=== PATIENT | female | born 1995 | race Caucasian/White ===

== ENCOUNTER 2023-08-21 11:14 | Inpatient (IN) | payer BC, OTHER ==
[~2023-08-21 11:14] MED LIST: Bupivacaine 0.25% HCL 30 ML VIAL ONE
[2023-08-21 13:18] VITALS: BMI 28.8
[2023-08-21] MEDS ORDERED: Oxytocin 30 units/NS 500 ML 500 ML ONE (13:19)
[2023-08-21] MEDS ORDERED: Promethazine HCl 25 MG/ML VIAL IM PRN ×2 (13:41→19:31)
[2023-08-21] MEDS ORDERED: HYDROcodone/Acetaminophen 5/325 mg Tablet PO PRN ×2 (13:41)
[2023-08-21] MEDS ORDERED: Ibuprofen 800 MG TAB PO PRN (13:41)
[2023-08-21] MEDS ORDERED: Lidocaine 1% (PF) 30 ML VIAL SC PRN (13:41)
[2023-08-21] MEDS ORDERED: hydrALAZINE 20 MG/ML VIAL SLOW IVP PRN ×2 (13:41→23:18)
[2023-08-21] MEDS ORDERED: Ondansetron PF 4 MG/2 ML Vial IVP PRN ×2 (13:41→19:31)
[2023-08-21] MEDS ORDERED: fentaNYL 50 mcg/mL 1 mL Vial SLOW IVP PRN (13:41)
[2023-08-21] MEDS ORDERED: Oxytocin 30 units/NS 500 ML 500 ML IV SCH ×3 (13:45)
[2023-08-21 13:55] LABS: Hematocrit 42.4 % (34.9-44.5); Hemoglobin 14.2 g/dL (12.0-15.5); Mean Corpuscular HGB CONC 33.5 g/dL (32.0-36.0); Mean Corpuscular Hemoglobin 29.6 pg (27.0-33.0); Mean Corpuscular Volume 88.3 fl (81.6-98.3); Mean Platelet Volume 11.5 fl (7.4-10.4); Platelet Count 258 10x3/uL (150-450); RBC Distribution Width 14.1 % (11.5-14.5); White Blood Cell (WBC) Count 10.6 10x3/uL (3.5-10.5)
[2023-08-21 14:35] LABS: HBSAg Index 0.16 S/CO (0-0.99); Hep B Surf Ag - L&D Non-Reactive S/CO (NonReactive)
[2023-08-21] MEDS ORDERED: Sodium Bicarbonate 2.5 MEQ/5 ML VIAL ONE (15:09)
[2023-08-21] MEDS ORDERED: fentaNYL/Ropivacaine Epidural 100 ML ONE (15:12)
[2023-08-21] MEDS ORDERED: diphenhydrAMINE 50 MG/ML VIAL IVP PRN (19:31)
[2023-08-21] MEDS ORDERED: Acetaminophen 325 MG TAB PO PRN ×2 (19:31→23:39)
[2023-08-21] MEDS ORDERED: Naloxone HCl 0.4 mg/ml Vial IVP PRN ×2 (19:31)
[2023-08-21] MEDS ORDERED: Lactated Ringer's 500 ML IV PRN (19:31)
[2023-08-21] MEDS ORDERED: Moisturizing Cream (Eucerin) 113 GM JAR TOP PRN (19:31)
[2023-08-21] MEDS ORDERED: ePHEDrine Sulfate 50 MG/10 ML VIAL SLOW IVP PRN (19:31)
[2023-08-21] MEDS ORDERED: fentaNYL 2 mcg/Ropivacaine 0.2% Epidural 100 ML CADD EPIDURAL SCH (19:45)
[2023-08-21] MEDS ORDERED: Communication Order-Pharmacy FS SCH (19:45)
[2023-08-21] MEDS: Lactated Ringer's 1,000 ML IV SCH (20:48)
[2023-08-21] MEDS ORDERED: Bisacodyl 10 MG SUPP PR PRN (23:18)
[2023-08-21] MEDS ORDERED: Milk Of Magnesia 30 ML UDCUP PO PRN (23:18)
[2023-08-21] MEDS ORDERED: diphenhydrAMINE 25 MG CAP PO PRN (23:18)
[2023-08-21] MEDS ORDERED: Preparation H Ointment 28 GM TUBE PR PRN (23:18)
[2023-08-21] MEDS ORDERED: Boostrix 0.5 ML (Tdap) VIAL (>/=7 yrs of age) IM ONE (23:18)
[2023-08-21] MEDS ORDERED: Lanolin Ointment 7 GM TUBE TOP PRN (23:18)
[2023-08-21 23:23] LABS: RapidComm Collect By CBN
[2023-08-21] MEDS ORDERED: HYDROmorphone 2 MG TAB PO PRN (23:23)
[2023-08-21 23:24] LABS: RapidComm Collect By CBN; pH (Cord, venous) 7.265 (7.250-7.350)
[2023-08-22] MEDS: Lactated Ringer's 1,000 ML IV SCH (00:04)
[2023-08-22] MEDS: Acetaminophen 500 MG TAB PO SCH ×3 (00:26→12:30)
[2023-08-22] MEDS: Ibuprofen 200 MG TAB PO SCH ×3 (00:51→12:30)
[2023-08-22] MEDS: Ferrous Sulfate 325 MG TAB PO SCH (07:06)
[2023-08-22] MEDS: Docusate 100 MG CAP PO SCH ×2 (08:15→21:27)
[2023-08-22] MEDS ORDERED: HYDROcodone/Acetaminophen 5/325 mg Tablet PO PRN (12:15)
[2023-08-22] MEDS: Ibuprofen 800 MG TAB PO SCH ×2 (14:05→21:26)
[2023-08-23] MEDS: Ibuprofen 800 MG TAB PO SCH (05:08)
[2023-08-23] MEDS: Ferrous Sulfate 325 MG TAB PO SCH (07:27)
[2023-08-23 07:41] VITALS: BP 118/70; TEMP 98.2
[2023-08-23] MEDS: Docusate 100 MG CAP PO SCH (08:01)
== END 2023-08-23 12:00 | disposition home or self-care (01) | DRG 807 ==
LOC: CSHLD/OP 11:14 → CSHLD 11:18 → CSHPP 08-22 01:25
PROVIDERS: ADMIT Obstetrics & Gynecology; ATTEND Obstetrics & Gynecology
PROC: 10E0XZZ Delivery of Products of Conception, External Approach (ICD-10-PCS; principal; 2023-08-21)
PROC: 10907ZC Drainage of Amniotic Fluid, Therapeutic from Products of Conception, Via Natural or Artificial Opening (ICD-10-PCS; 2023-08-21)
PROC: 0HQ9XZZ Repair Perineum Skin, External Approach (ICD-10-PCS; 2023-08-21)
PROC: 0UQMXZZ Repair Vulva, External Approach (ICD-10-PCS; 2023-08-21)
PROC: 3E033VJ Introduction of Other Hormone into Peripheral Vein, Percutaneous Approach (ICD-10-PCS; 2023-08-21)
DX: O70.0 First degree perineal laceration during delivery (principal); Z37.0 Single live birth; O76 Abnormality in fetal heart rate and rhythm complicating labor and delivery; Z3A.39 39 weeks gestation of pregnancy
CPT/HCPCS: 51702; 82805; 85027; 86850; 86900; 86901; 87340; J1200; J2405; J2590; S0020